=== PATIENT | female | born 1930 | race Caucasian/White ===

== ENCOUNTER 2017-10-26 21:14 | Inpatient (IN) | payer OTHER ==
[~2017-10-26] VITALS: Ht 162.6 cm; Wt 45.4 kg
[2017-10-26 21:37] VITALS: BP 157/73
--- NOTE | 2017-10-26 21:41 | NUR ---
BIB DAUGHTER WITH FEVER, LETHARGY, FATIGUE, GENERALIZED WEAKNESS X3 DAYS. PT STATES BURNING WITH URINATION X3 DAYS. DENIES N/V/D; SKIN IS PINK/WARM/DRY; AAOX4 WITH EVEN AND STEADY GAIT; LUNGS CLEAR BL; HR TACHY AT 103 WITH FEVER OF 102.2; PT DENIES ANY CP, SOB, OR COUGH AT THIS TIME; PATIENT STATES PAIN OF 2/10 WITH URINATION AT THIS TIME; VSS; PTIENT POSITIONED FOR COMFORT; HOB ELEVATED; BEDRAILS UP X2; BED DOWN. ER MD MADE AWARE OF PT STATUS. CONTINUE TO MONITOR.
--- NOTE | 2017-10-26 21:41 | NUR ---
TO BED # 10 VIA W/C, REPORT GIVEN TO NED HANSON
[2017-10-26] MEDS ORDERED: NACL 0.9% 2,000 ML IV SCH (21:59)
[2017-10-26] MEDS ORDERED: ACETAMINOPHEN 325 MG TAB PO ONE (22:00)
[2017-10-26] MEDS ORDERED: LEVOFLOXACIN 750 MG/D5W PREMIX 150 ML IV ONE (22:00)
[2017-10-26 22:23] LABS: HEMATOCRIT 33.6 % (36-48); HEMOGLOBIN 11.3 g/dL (12.0-16.0); MEAN CORPUSCULAR HEMOGLOBIN 32 pg (27-31); MEAN CORPUSCULAR HGB CONC 34 g/dL (33-37); MEAN CORPUSCULAR VOLUME 94.7 fL (80-94); PLATELET COUNT (AUTO) 351 K/uL (140-450); RED BLOOD CELL COUNT(AUTO) 3.55 MIL/uL (4.20-5.40); RED CELL DISTRIBUTION WIDTH 12.4 % (11.6-13.7); WHITE BLOOD COUNT (AUTO) 9.3 K/uL (4.8-10.8)
[2017-10-26 22:24] LABS: BASOPHILS # (AUTO) 0.1 K/uL (0.00-0.22); EOSINOPHILS % (AUTO) 0.2 % (0.0-4.0); LYMPHOCYTES # (AUTO) 0.7 K/uL (2.5-16.5); LYMPHOCYTES % (AUTO) 7.9 % (20.5-51.1); MONOCYTES # (AUTO) 0.9 K/uL (0.8-1.0); MONOCYTES % (AUTO) 10.2 % (1.7-9.3); NEUTROPHILS # (AUTO) 7.6 K/uL (1.8-7.7); NEUTROPHILS % (AUTO) 80.7 % (42.2-75.2)
[2017-10-26 22:45] LABS: SODIUM SERUM 131 mmol/L (136-145)
[2017-10-26 22:46] LABS: ANION GAP 13.2 (8-16); CARBON DIOXIDE 22.9 mmol/L (21-32); CHLORIDE 99 mmol/L (98-107); CREATININE 2.3 mg/dL (0.6-1.3); GLUCOSE 123 mg/dL (74-106); POTASSIUM 4.1 mmol/L (3.5-5.1); TOTAL BILIRUBIN 0.7 mg/dL (0.0-1.0); UREA NITROGEN, BLOOD 43 mg/dL (7-18)
[2017-10-26 22:47] LABS: ALBUMIN 3.1 g/dL (3.4-5.0); ASPARTATE AMINOTRANSFERASE 14 U/L (15-37)
[2017-10-26 23:15] LABS: PROTHROMBIN TIME 10.6 secs (10.8-13.4)
[2017-10-26 23:29] LABS: APPEARANCE,URINE CLOUDY (CLEAR); BILIRUBIN,URINE NEGATIVE (NEGATIVE); BLOOD, URINE 3+ (NEGATIVE); COLOR,URINE YELLOW (YELLOW); LEUKOCYTE ESTERASE ,URINE 3+ (NEGATIVE); NITRITE, URINE NEGATIVE (NEGATIVE); PH,URINE 6.5 (5.0-9.0); UGLUCOSE NEGATIVE (NEGATIVE)
[2017-10-26 23:43] LABS: RBC,URINE TOO NUMEROUS TO COUN /HPF (0-5); WBC,URINE TOO MANY TO COUNT /HPF (0-5)
--- NOTE | 2017-10-27 00:13 | NUR ---
TALKED WITH YOVANI FROM [facility] REGARDING ADMISSION. YOVANI REQUEST FACE SHEET AND CLINICAL NOTES TO BE FAXED TO [phone].
[2017-10-27 03:05] VITALS: BP 134/69
--- NOTE | 2017-10-27 03:05 | NUR ---
REPORT RECEIVED FROM ED NURSE. PT IN STABLE CONDITION. AAOX4. INTRODUCED SELF AND BOARD UPDATED. PT ABLE TO AMBULATE WITH ASSISTANCE BUT STILL A FALL RISK. IV R AC 20G RUNNING 1/2NS @75ML/HR. SKIN WARM, DRY, AND NOT INTACT DUE TO REDNESS OF THE SACRAL AREA. BED LOCKED IN LOW POSITION. CALL GUIDO WITHIN REACH.
--- NOTE | 2017-10-27 03:15 | NUR ---
Report given and care transfered to Josep RN room 115. Transported via rney with vss.
--- NOTE | 2017-10-27 03:40 | NUR ---
THONG CHERRY NOTIFIED OF PT INPATIENT STATUS. ORDERS PUT IN FOR 1/2 NS @ 75ML/HR. MRSA [facility]. TYL 650MG Q6 PRN FOR PAIN. SCD'S. LEVAQUIN 750MG Q24H. TORB.
[2017-10-27] MEDS ORDERED: ACETAMINOPHEN 325 MG TAB PO PRN (03:50)
--- NOTE | 2017-10-27 03:50 | NUR ---
CALLED PHARMACY FOR AN ORDER CONFIRMATION. PHARMACY CHANGED LEVAQUIN DOSE TO 250MG Q48H. STATED THAT IT IS RENALLY DOSED. PT BUN 23 AND MILL FEEDER 2.3. MD NOTIFIED AND CONFIRMED. Addendum: 10/27/17 at 0639 by Josep Combs RN BUN 43. NOT 23.
[2017-10-27] MEDS: NACL 0.45% 1,000 ML IV SCH ×2 (04:11→15:36)
--- NOTE | 2017-10-27 04:15 | NUR ---
THONG CHERRY CALLED AND ASKED TO ADD HIM FOR CONSULT. NEPHRO CONSULT. HE WILL BE IN TO SEE PT TODAY.
--- NOTE | 2017-10-27 07:05 | NUR ---
RECEIVED REPORT FROM NIGHTSHIFT NURSE AT BEDSIDE. PATIENT IS ASLEEP AT THIS TIME BUT AROUSABLE TO NAME. PATIENT IS ALERT AND ORIENTED X2 TO NAME AND BIRTHDAY. PATIENT HAS AN IV NOTED ON HER RIGHT AC 20 G RUNNING 1/2 NS AT 75 ML/HR. PATIENT HAS REDNESS ON SACRAL AREA. PATIENT SKIN IS WARM TO TOUCH. NO DISTRESS NOTED. NO PAIN NOTED. UPDATED BOARD IN PATIENT'S ROOM. LOWERED BED TO LOWEST SETTING. ARMED BED WITH ALARM. CALL LIGHT WITHIN REACH OF PATIENT. WILL CONTINUE TO MONITOR PATIENT.
--- NOTE | 2017-10-27 07:05 | NUR ---
REPORT GIVEN TO AM NURSE. PT IN STABLE CONDITION.
[2017-10-27 08:00] VITALS: BP 143/63
--- NOTE | 2017-10-27 09:50 | NUR ---
PATIENT IS RESTING AT THIS TIME. NO DISTRESS NOTED. WILL CONTINUE TO MONITOR PATIENT.
--- NOTE | 2017-10-27 10:10 | NUR ---
PATIENT HAS BEEN SCREENED AND CATEGORIZED MODERATE NUTRITION RISK. PATIENT WILL BE SEEN WITHIN 3-5 DAYS OF ADMISSION. 10/30/17 10/31/[address]
--- NOTE | 2017-10-27 10:25 | NUR ---
PER CHARGE NURSES REQUEST TO ASSESS PT. SACRAL COCCYX SKIN CONDITION. BLANCHABLE REDNESS WITH IAD , SKIN INTACT, SACRAL COCCYX REDNESS 3X2 CM. PT. IS INCONTINENT OF BLADDER AT TIME OF ASSESSMENT. FACUNDO-CARE PROVIDES AND CLEAN GOWN PROVIDES. PT.TEACHING OF TURN AND REPOSITION Q2H AND PROVIDES CALL LIGHT NEXT TO [place]. AND ENCOURAGE PT. TO USE CALL LIGHT FOR ASSISTANCE. PT REQUIRES REINFORCE TEACHING.PRIMARY RN NOTIFY.
--- NOTE | 2017-10-27 11:45 | NUR ---
NO DISTRESS NOTED. WILL CONTINUE TO MONITOR PATIENT.
--- NOTE | 2017-10-27 12:05 | NUR ---
Ship Painter Helper Note: I called and spoke Sun from Jenna Reynolds's office (patient's pcp) in order to attempt to obtain patient's family member's contact information, the phone number listed for "person to notify" on face sheet does not ring, it goes straight to a voicemail that is not set up, unable to leave message. Per Sun, patient's medical chart has her caregiver's contact information, Carol Baker , no family listed, no one else listed. Charge nurse Parrish called and spoke with Carol, Carol provided Parrish with phone number of patient's daughter Apple Chanel . I requested for admitting dept to make correction on phone number for Apple Chanel.
[2017-10-27 12:07] LABS: ALBUMIN 2.4 g/dL (3.4-5.0); ANION GAP 12.2 (8-16); CARBON DIOXIDE 21.6 mmol/L (21-32); CHLORIDE 107 mmol/L (98-107); CREATININE 1.8 mg/dL (0.6-1.3); GLUCOSE 97 mg/dL (74-106); POTASSIUM 3.8 mmol/L (3.5-5.1); SODIUM SERUM 137 mmol/L (136-145); TOTAL BILIRUBIN 0.5 mg/dL (0.0-1.0); UREA NITROGEN, BLOOD 33 mg/dL (7-18)
[2017-10-27 12:16] LABS: ASPARTATE AMINOTRANSFERASE 11 U/L (15-37)
[2017-10-27 12:21] LABS: HEMATOCRIT 30.6 % (36-48); HEMOGLOBIN 9.9 g/dL (12.0-16.0); MEAN CORPUSCULAR HEMOGLOBIN 31 pg (27-31); MEAN CORPUSCULAR HGB CONC 32 g/dL (33-37); MEAN CORPUSCULAR VOLUME 94.5 fL (80-94); PLATELET COUNT (AUTO) 307 K/uL (140-450); RED BLOOD CELL COUNT(AUTO) 3.23 MIL/uL (4.20-5.40); RED CELL DISTRIBUTION WIDTH 12.2 % (11.6-13.7); WHITE BLOOD COUNT (AUTO) 6.9 K/uL (4.8-10.8)
[2017-10-27 12:22] LABS: BASOPHILS % (AUTO) 0.4 % (0.0-2.0); EOSINOPHILS % (AUTO) 0.4 % (0.0-4.0); LYMPHOCYTES # (AUTO) 0.5 K/uL (2.5-16.5); LYMPHOCYTES % (AUTO) 7.8 % (20.5-51.1); MONOCYTES # (AUTO) 0.7 K/uL (0.8-1.0); MONOCYTES % (AUTO) 10.6 % (1.7-9.3); NEUTROPHILS # (AUTO) 5.7 K/uL (1.8-7.7); NEUTROPHILS % (AUTO) 80.8 % (42.2-75.2)
--- NOTE | 2017-10-27 13:35 | NUR ---
PATIENT FAMILY MEMBER AT BEDSIDE. DAUGHTER ABLE TO ANSWER QUESTIONS WITH DR. COSTA OVER THE PHONE. WILL CONTINUE TO MONITOR PATIENT.
[2017-10-27] MEDS ORDERED: KEP500 PO (15:09)
[2017-10-27] MEDS ORDERED: FAMO-90 PO (15:11)
[2017-10-27] MEDS ORDERED: LISI5TAB18 PO (15:12)
[2017-10-27] MEDS ORDERED: DONE5TAB6 PO (15:16)
[2017-10-27] MEDS ORDERED: HYDRAGUARD CREAM TP PRN (15:40)
[2017-10-27 16:00] VITALS: BP 149/66
--- NOTE | 2017-10-27 16:20 | NUR ---
NO DISTRESS NOTED. WILL CONTINUE TO MONITOR PATIENT.
--- NOTE | 2017-10-27 19:15 | NUR ---
GAVE REPORT TO NIGHTSHIFT NURSE AT BEDSIDE. PATIENT IN STABLE CONDITION.
--- NOTE | 2017-10-27 19:16 | NUR ---
RECEIVED BEDSIDE REPORT FROM DAY SHIFT NURSE JAVIER RN, PT RESTING, NO DISTRESS NOTED IV TO R AC 20G INFILTRATED, WILL PUT IN NEW IV, PT ON ROOM AIR, NO SOB, INITIAL ASSESSMENT, DONE, ALL SAFETY PRECAUTION MET, WILL CONTINUE TO MONITOR.
--- NOTE | 2017-10-27 20:10 | NUR ---
PT SLEEPING, NO DISTRESS NOTED, CALL LIGHT WITHIN REACH, WILL CONTINUE TO MONITOR.
--- NOTE | 2017-10-27 22:40 | NUR ---
CHANGED AND REPOSITIONED PT, NO DISTRESS NOTED, CALL LIGHT WITHIN REACH, WILL CONTINUE TO MONITOR.
--- NOTE | 2017-10-27 23:22 | NUR ---
PT SLEEPING, NO DISTRESS NOTED, CALL LIGHT WITHIN REACH, WILL CONTINUE TO MONITOR.
[2017-10-28 00:40] VITALS: BP 143/63
[2017-10-28] MEDS: HYDRAGUARD CREAM TP SCH ×2 (01:30→13:00)
--- NOTE | 2017-10-28 01:30 | NUR ---
PT HAS TEMP OF 100.8, TYLENOL GIVEN, PT TOLERATED WELL, NO DISTRESS NOTED, CALL LIGHT WITHIN REACH, WILL CONTINUE TO MONITOR.
[2017-10-28] MEDS: NACL 0.45% 1,000 ML IV SCH ×2 (01:51→11:36)
--- NOTE | 2017-10-28 02:30 | NUR ---
RECHECKED PT TEMPERATURE 97.9, PT STABLE, NO DISTRESS NOTED, CALL LIGHT WITHIN REACH, WILL CONTINUE TO MONITOR.
--- NOTE | 2017-10-28 04:10 | NUR ---
PT WOKE UP AND STARTED TO SAY THAT SHE IS GOING HOME, AND SHE WANTS HER WRIST BANDS TAKEN OFF, REORIENT PT REGARDING WHERE SHE IS AND WHAT THE BANDS ARE FOR, PT STATED UNDERSTANDING BUT KEEPS ASKING ABOUT TAKING OFF HER BAND. PT STABLE, NO DISTRESS NOTED, CALL LIGHT WITHIN REACH, WILL CONTINUE TO MONITOR.
--- NOTE | 2017-10-28 05:10 | NUR ---
CHECKED ON PT, PT SLEEPING, NO DISTRESS NOTED, CALL LIGHT WITHIN REACH, WILL CONTINUE TO MONITOR.
--- NOTE | 2017-10-28 07:28 | NUR ---
ENDORSED PT TO DAY SHIFT NURSE JAVIER RN, PT IN STABLE CONDITION, NO DISTRESS NOTED, CALL LIGHT WITHIN REACH.
--- NOTE | 2017-10-28 07:28 | NUR ---
RECEIVED REPORT FROM NIGHTSHIFT NURSE AT BEDSIDE. PATIENT IS ASLEEP AT THIS TIME. IV NOTED ON RIGHT FOREARM 20 G INFUSING 1/2 NS AT 100 ML/HR. PATIENT IS AROUSABLE TO NAME. PATIENT APPEARS TO BE ALERT AND ORIENTED X2. SACRAL REDNESS NOTED. NO DISTRESS NOTED. NO PAIN NOTED. UPDATED BOARD IN PATIENT'S ROOM. SEIZURE PRECAUTION IN PLACE. LOWERED BED TO LOWEST SETTING. WILL CONTINUE TO MONITOR PATIENT.
[2017-10-28 08:00] VITALS: BP 130/67
[2017-10-28 09:13] LABS: HEMOGLOBIN 8.9 g/dL (12.0-16.0); LYMPHOCYTES % (AUTO) 15.1 % (20.5-51.1); MEAN CORPUSCULAR HEMOGLOBIN 31 pg (27-31); MEAN CORPUSCULAR HGB CONC 33 g/dL (33-37); MEAN CORPUSCULAR VOLUME 93.8 fL (80-94); NEUTROPHILS % (AUTO) 69.5 % (42.2-75.2); PLATELET COUNT (AUTO) 281 K/uL (140-450); RED BLOOD CELL COUNT(AUTO) 2.88 MIL/uL (4.20-5.40); RED CELL DISTRIBUTION WIDTH 12.3 % (11.6-13.7); WHITE BLOOD COUNT (AUTO) 5.1 K/uL (4.8-10.8)
[2017-10-28 09:14] LABS: BASOPHILS % (AUTO) 0.6 % (0.0-2.0); EOSINOPHILS % (AUTO) 0.8 % (0.0-4.0)
[2017-10-28 09:48] LABS: ALBUMIN 2.1 g/dL (3.4-5.0); ANION GAP 14.2 (8-16); ASPARTATE AMINOTRANSFERASE 17 U/L (15-37); CARBON DIOXIDE 18.6 mmol/L (21-32); CHLORIDE 105 mmol/L (98-107); CREATININE 1.8 mg/dL (0.6-1.3); GLUCOSE 101 mg/dL (74-106); POTASSIUM 3.8 mmol/L (3.5-5.1); SODIUM SERUM 134 mmol/L (136-145); TOTAL BILIRUBIN 0.3 mg/dL (0.0-1.0); UREA NITROGEN, BLOOD 30 mg/dL (7-18)
--- NOTE | 2017-10-28 10:05 | NUR ---
PATIENT RESTING AT THIS TIME. NO DISTRESS NOTED. WILL CONTINUE TO MONITOR PATIENT.
--- NOTE | 2017-10-28 10:06 | NUR ---
SPOKE WITH TWYLA FROM [facility]. SHE SAID SHE IS THE CM TODAY. FAXED INITIAL REVIEW TO [phone] PHONE [phone].
--- NOTE | 2017-10-28 10:36 | NUR ---
PATIENT HAS BEEN RE-SCREENED AND RE-CATEGORIZED HIGH NUTRITIONAL RISK DUE TO BMI < 18.4. PATIENT WILL BE SEEN 10/28/17. LINA J[address]
--- NOTE | 2017-10-28 11:35 | NUR ---
PATIENT RESTING AT THIS TIME. NO DISTRESS NOTED. WILL CONTINUE TO MONITOR PATIENT.
[2017-10-28] MEDS ORDERED: LEVO500T98 PO (12:28)
--- NOTE | 2017-10-28 13:00 | NUR ---
INSERTED TORRES CATHETER INTO PATIENT. PATIENT TOLERATED WELL. WILL CONTINUE TO MONITOR PATIENT.
--- NOTE | 2017-10-28 13:34 | NUR ---
RECEIVED ORDER FOR MED RECONCILIATION TO BE FAXED TO [facility], ORDER FOR HIGH RISK CLINIC FOLLOW UP AUTH AND HOME HEALTH EVAL FOR TORRES CARE AND CHANGE. SPOKE WITH YAYO AT [facility], AND FAXED THE 3 ORDERS. PHONE YAYO [phone]. THE ORER FOR RECONCILIATION MEDICATION WAS ALSO FAXED TO [facility] AT [phone].
--- NOTE | 2017-10-28 14:16 | NUR ---
LEFT VOICEMAIL WITH UPDATED CONTACT NUMBER FOR FLORENCIA, THE PATIENT'S DAUGHTER. INFORMED DAUGHTER THAT THERE IS A DISCHARGE ORDER IN PLACE FOR PATIENT. AWAITING CALL BACK FROM DAUGHTER
--- NOTE | 2017-10-28 14:29 | NUR ---
PHYSICAL THERAPY CO-SIGN The Physical Therapy Progress Notes documented by Activity Specialist have been reviewed. I CONCUR W/AU PAIR NOTE; CONT PER TX PLAN Reviewed/Co-Signed by: Lashawn Vásquez, PT Documentation Done by: BRENDAN MALLOY PTA Addendum: 10/28/17 at 1429 by Lashawn Vásquez PT Amended: Links added.
--- NOTE | 2017-10-28 14:48 | NUR ---
PATIENT'S DAUGHTER FLORENCIA CALLED BACK. DAUGHTER IS AWARE OF DISCHARGE ORDER AND WILL AIRPORT OPERATIONS COORDINATOR PATIENT. WILL CONTINUE TO MONITOR PATIENT.
--- NOTE | 2017-10-28 15:53 | NUR ---
RECEIVED A CALL FROM YAYO FROM [facility]. SHE SAID THE HOME HEALTH FOR THIS PATIENT WILL BE [facility] PHONE [phone]. WILL NOTIFY JAKE HANSONNAVAL SCIENCE TEACHER NURSE. I INFORMED JAVIER HANSON.
[2017-10-28 16:00] VITALS: BP 139/68
--- NOTE | 2017-10-28 17:22 | NUR ---
PATIENT IS RESTING AT THIS TIME. NO DISTRESS NOTED. WILL CONTINUE TO MONITOR PATIENT.
--- NOTE | 2017-10-28 18:50 | NUR ---
PATIENT DAUGHTER SIGNED ALL DISCHARGE INSTRUCTIONS FOR PATIENT. DAUGHTER IS AWARE OF PRESCRIPTION. DAUGHTER IS AWARE OF [facility] AND NUMBER FOR THEIR AGENCY. DISCONTINUED PATIENT'S INTRAVENOUS LINE WITH CATHETER STILL INTACT. REMOVED PATIENT'S IDENTIFICATION BAND. PATIENT LEFT IN STABLE CONDITION WITH ALL BELONGINGS VIA WHEELCHAIR.
[2017-10-28] MEDS ORDERED: LEVOFLOXACIN 250 MG/D5 PREMIX 50 ML IV SCH (22:00)
--- NOTE | 2017-10-31 15:40 | NUR ---
FAXED DISCHARGE SUMMARY TO [facility] [phone]
== END 2017-10-28 18:50 | disposition home health service (06) | DRG 682 ==
LOC: MED 21:14 → MTU 10-27 02:44
PROVIDERS: ADMIT Hospitalist; ATTEND Hospitalist
DX: N17.0 Acute kidney failure with tubular necrosis (principal); G93.41 Metabolic encephalopathy; N39.0 Urinary tract infection, site not specified; E87.1 Hypo-osmolality and hyponatremia; F03.90 Unspecified dementia, unspecified severity, without behavioral disturbance, psychotic disturbance, mood disturbance, and anxiety; G40.909 Epilepsy, unspecified, not intractable, without status epilepticus; K21.9 Gastro-esophageal reflux disease without esophagitis; Z96.649 Presence of unspecified artificial hip joint; N18.9 Chronic kidney disease, unspecified; I12.9 Hypertensive chronic kidney disease with stage 1 through stage 4 chronic kidney disease, or unspecified chronic kidney disease; E86.9 Volume depletion, unspecified; N13.30 Unspecified hydronephrosis; Z88.6 Allergy status to analgesic agent; Z88.0 Allergy status to penicillin; Z88.2 Allergy status to sulfonamides; Z87.11 Personal history of peptic ulcer disease; Z90.49 Acquired absence of other specified parts of digestive tract; Z90.710 Acquired absence of both cervix and uterus
CPT/HCPCS: 36415; 71045; 76770; 80053; 81001; 82436; 82550; 82553; 82570; 83605; 83874; 83880; 84300; 84484; 85025; 85610; 85730; 87040; 87081; 87086; 87186; 93005; 96361; 96365; 97116; 97140; 97161-GP; 97530; 99285; J1956; J7030; Q0092